=== PATIENT | female | born 1975 | race Hispanic/Latino ===

== ENCOUNTER 2019-10-18 12:29 | Emergency (ER) | payer BC ==
[2019-10-18] MEDS ORDERED: TETANUS/DIPHTHERIA TOXOID [ADULT] 0.5 ML VIAL IM ONE (13:41)
== END 2019-10-18 14:24 | disposition home or self-care (01) ==
LOC: EDH 12:29
DX: S81.032A Puncture wound without foreign body, left knee, initial encounter (principal); X58.XXXA Exposure to other specified factors, initial encounter; Y93.89 Activity, other specified; Y92.89 Other specified places as the place of occurrence of the external cause; Y99.8 Other external cause status
CPT/HCPCS: 73562; 90471; 90714

== ENCOUNTER 2024-08-27 23:00 | Emergency (ER) | payer BC ==
[~2024-08-27] VITALS: Ht 152.4 cm; Wt 82.3 kg
--- NOTE | 2024-08-27 23:05 | NUR ---
LMP 08/18/24
--- NOTE | 2024-08-27 23:10 | ERN ---
ED Note History of Present Illness Stated Complaint: CHEST PAIN Chief Complaint: Chest Pain Time Seen by MD: 23:02 Time Seen by Midlevel: 23:02 Dictation: The patient is a 48-year-old female with a history of hypothyroidism, cholecystectomy who presents to the emergency department with complaints of midsternal chest pain onset 11:30 a.m. after eating. Patient reports pain feels sharp and intermediate lasting a few seconds. Denies any nausea, vomiting, diarrhea, fevers, shortness of breath. Allergies: Coded Allergies: No Known Allergies (Unverified Allergy, Unknown, 08/27/24) Past Medical History Past Medical History: Hypothyroid Surgical History: Cholecystectomy RN Note Reviewed/Agreed w/PFSH: Yes Review of System Dictation Constitutional: Negative for fever,chills, and weight loss Eyes: Negative for injury, pain,redness, and discharge ENT: Negative for injury,pain or swelling Cardiovascular: Negative for palpitations, and edema positive for chest pain Respiratory: Negative for shortness of breath, cough, and wheezing, Abdomen/GI: Negative for abdominal pain, nausea, vomiting, diarrhea, and constipation Back: Negative for injury and pain : Negative for injury, bleeding and discharge MS/Extremity: Negative for injury and deformity Skin: Negative for rash, and discoloration Neuro: Negative for headache, weakness, numbness, tingling, and seizure Psych: Negative for suicide ideation, homicidal ideation, and hallucinations Initial Vital Sign VS Vital Signs Date Time Temp Pulse Resp B/P (MAP) Pulse Ox O2 Delivery O2 Flow Rate FiO2 08/27/24 23:01 98.2 89 20 149/78 98 Room Air 08/27/24 23:13 0 21 Physical Exam Dictation Vital Signs reviewed General Appearance: Alert, oriented x 3, no acute distress, well developed, nourished. Head and Face: non-traumatic. Eyes: PERRL, pink conjunctivas, eyelid no trauma, anterior chamber with arcus senilis. Ears: Pinnas intact and no signs of trauma or erythema ear canals clear and no discharge TM no erythema Nose: No discharge, no bleeding. Oropharynx: Mouth normal, tongue pink. pharynx clear,no erythema, tonsils no exudates, no abscesses noted, mucous membrane moist Neck: Supple, non-tender, no thyromegaly, no masses, no JVD, no bruits Breast:Deferred Chest:No tenderness, no crepitus, no paradoxical movement, no retractions Lungs:Clear, well-ventilated, symmetric, no rales, no wheezing, no rhonchi, no stridor, good breath sounds bilaterally Heart: Regular rate, regular rhythm, no murmur, no gallops Vascular: no peripheral edema, Abdomen: Soft, positive bowel sounds, nondistended, no guarding, nontender, no rebound, no masses no hepatomegaly, no splenomegaly, no Jose's sign, no hernias. Rectal: Deferred Genital: Deferred Neurological: Normal speech, motor function intact, sensory function intact Musculoskeletal: Neck nontender, full range of motion, back nontender, full range of motion, Extremities: nontender, full range of motion Skin: Color pink, dry, no turgor, no rash, no lacerations, no abrasions, no contusions. Lymphatic: Deferred Results (Laboratory/Radiology) Laboratory/Radiology Laboratory Tests Test 08/27/24 23:13 08/27/24 23:20 08/27/24 23:44 08/28/24 00:20 White Blood Count 12.8 K/uL (4.8-10.8) H Red Blood Count 4.90 MIL/uL (4.00-5.50) Hemoglobin 14.4 g/dL (12.0-16.0) Hematocrit 41.5 % (36-48) Mean Corpuscular Volume 84.7 fL (79-99) Mean Corpuscular Hemoglobin 29.4 pg (27.0-33.0) Mean Corpuscular Hemoglobin Concent 34.7 g/dL (32.0-36.0) Red Cell Distribution Width 12.7 % (11.0-15.5) Platelet Count 316 K/uL (130-400) Mean Platelet Volume 9.3 fL (7.5-10.5) Immature Granulocyte % (Auto) 1.6 % (0-1) H Neutrophils (%) (Auto) 59.0 % (40.0-77.0) Lymphocytes (%) (Auto) 27.9 % (21.0-51.0) Monocytes (%) (Auto) 8.6 % (3.0-13.0) Eosinophils (%) (Auto) 2.3 % (0.0-8.0) Basophils (%) (Auto) 0.6 % (0.0-5.0) Neutrophils # (Auto) 7.5 K/uL (1.8-7.7) Lymphocytes # (Auto) 3.6 K/uL (1.0-4.8) Monocytes # (Auto) 1.1 K/uL (0.1-1.0) H Eosinophils # (Auto) 0.30 K/uL (0.00-0.70) Basophils # (Auto) 0.08 K/uL (0.00-0.20) Absolute Immature Granulocyte (auto 0.21 K/uL (0-1) Nucleated Red Blood Cells 0.0 % (0.0-0.19) Sodium Level 141 mmol/L (136-145) Potassium Level 3.8 mmol/L (3.5-5.1) Chloride Level 104 mmol/L (101-111) Carbon Dioxide Level 25 mmol/L (21-32) Blood Urea Nitrogen 7 mg/dL (7-18) Creatinine 0.6 mg/dL (0.5-1.0) Glomerular Filtration Rate Calc 112 mL/min (>90) Random Glucose 136 mg/dL (70-105) H Total Calcium 9.1 mg/dL (8.5-10.1) Total Bilirubin 0.2 mg/dL (0.2-1.0) Direct Bilirubin 0.1 mg/dL (0.0-0.3) Aspartate Amino Transf (AST/SGOT) 12 U/L (10-37) Alanine Aminotransferase (ALT/SGPT) 18 U/L (12-78) Alkaline Phosphatase 55 U/L (50-136) Total Creatine Kinase 49 U/L (21-232) Troponin I High Sensitivity < 4 ng/L (4-50) L < 4 ng/L (4-50) L B-Type Natriuretic Peptide < 5 pg/mL (0-100) Total Protein 7.4 g/dL (6.0-8.3) Albumin 3.5 g/dL (3.5-5.0) Lipase 42 U/L (16-77) Urine Color COLORLESS (YELLOW) Urine Appearance CLEAR (CLEAR) Urine pH 6.0 (5.0-8.0) Urine Specific [place] 1.010 (1.001-1.031) Urine Protein NEGATIVE mg/dL (NEGATIVE) Urine Glucose (UA) NEGATIVE mg/dL (NEGATIVE) Urine Ketones NEGATIVE mg/dL (NEGATIVE) Urine Occult Blood MODERATE (NEGATIVE) H Urine Nitrate NEGATIVE (NEGATIVE) Urine Bilirubin NEGATIVE mg/dL (NEGATIVE) Urine Urobilinogen 0.2 mg/dL (0.2-1.0) Urine Leukocyte Esterase NEGATIVE Markus/uL Urine RBC 2-5 /HPF (0-1) H Urine WBC 0-1 /HPF (0-1) Urine Squamous Epithelial Cells FEW /HPF (0-2) Urine Bacteria RARE /HPF (None Seen) Urine HCG, Qualitative NEGATIVE (NEGATIVE) Urine Opiates Screen NEGATIVE (NEGATIVE) Urine Barbiturates Screen NEGATIVE (NEGATIVE) Urine Phencyclidine Screen NEGATIVE (NEGATIVE) Urine Amphetamines Screen NEGATIVE (NEGATIVE) Urine Benzodiazepines Screen NEGATIVE (NEGATIVE) Urine Cocaine Screen NEGATIVE (NEGATIVE) Urine Marijuana (THC) Screen NEGATIVE (NEGATIVE) Troponin I < 0.05 ng/mL (0.00-0.05) Labs Reviewed?: Yes EKG: (+) rhythm (Sinus rhythm) EKG Comment: EKG 08/27/2024 2304 ventricular rate 81, regular rate and rhythm, normal sinus rhythm, no STEMI ED Course ED Course Orders Procedure Category Date Status Time Vital Signs Per CPOE 08/27/24 Transmitted Routine 23:04 B-Type Natriuretic LAB 08/27/24 Complete Peptide 23:04 Chest 1vw RAD 08/27/24 Taken 23:04 12 Lead Ekg Tracing- EKG 08/27/24 Logged Technical 23:04 Oxygen By Nc/Pulse Ox CPOE 08/27/24 Transmitted 23:04 Maintain Iv CPOE 08/27/24 Transmitted 23:04 Iv Insertion CPOE 08/27/24 Transmitted 23:04 Cardiac Monitoring CPOE 08/27/24 Transmitted 23:04 Pulse Oximetry With CPOE 08/27/24 Transmitted Vs And Prn 23:04 Cbc With Differential LAB 08/27/24 Complete 23:04 Activity: Br W/Brp CPOE 08/27/24 Transmitted With Assist 23:04 Troponin I High LAB 08/27/24 Complete Sensitivity 23:04 Urinalysis Profile LAB 08/27/24 Complete 23:04 Troponin Poc Order LAB 08/27/24 Complete Only 23:04 Bedside Troponin-I LAB.ER 08/27/24 In Process (Poc) 23:04 ,Urine Test LAB 08/27/24 Complete 23:04 Lipase LAB 08/27/24 Complete 23:06 Hepatic Function Panel LAB 08/27/24 Complete 23:06 Pantoprazole 40mg Inj PHA 08/27/24 Complete (Protonix 40mg Inj 23:30 Nitroglycerin 1gm PHA 08/27/24 Complete Oint (Nitroglycerin 1g 23:30 Aspirin 325mg Tab PHA 08/27/24 Complete (Aspirin 325mg Tab) 23:30 Basic Metabolic Panel LAB 08/27/24 Complete 23:13 Creatine Kinase, Total LAB 08/27/24 Complete 23:13 Drug Screen Urine LAB 08/27/24 Complete 23:30 Troponin I High LAB 08/28/24 Complete Sensitivity 00:14 Current Medications Medications (Trade) Dose Ordered Sig/Kaci Route PRN Reason Start Time Stop Time Status Last Admin Dose Admin Aspirin (Aspirin 325mg Tab) 325 mg ONCE ONCE PO 08/27/24 23:30 08/27/24 23:31 DC 08/27/24 23:21 Nitroglycerin (Nitroglycerin 1gm Oint) 1 inch ONCE ONCE TD 08/27/24 23:30 08/27/24 23:31 DC 08/27/24 23:20 Pantoprazole Sodium (PROTonix 40MG INJ) 40 mg ONCE ONCE IVP 08/27/24 23:30 08/27/24 23:31 DC 08/27/24 23:20 Vital Signs Date Time Temp Pulse Resp B/P (MAP) Pulse Ox O2 Delivery O2 Flow Rate FiO2 08/28/24 00:09 86 16 113/63 97 Room Air* 0 21 08/27/24 23:13 98.2 83 16 141/83 99 Room Air* 0 21 08/27/24 23:01 98.2 89 20 149/78 98 Room Air HEART Score Response (Comments) Value History: Low suspicion (0) 0 EKG: Normal 0 Age: 45-65yrs (+1) 1 Risk Factors: No known risk factors (0) 0 Initial Troponin: Normal limit (0) 0 Total 1 Medical Decision Making MDM The patient is a 48-year-old female with a history of hypothyroidism, cholecystectomy who presents to the emergency department with complaints of midsternal chest pain onset 11:30 a.m. after eating. Patient reports pain feels sharp and intermediate lasting a few seconds. Denies any nausea, vomiting, diarrhea, fevers, shortness of breath. CBC showed mild leukocytosis, no anemia, chemistry showed no electrolyte imbalance, negative troponin x2, normal BNP, normal lipase. Urinalysis unremarkable. Chest x-ray with no acute pathology. Patient no longer having any chest pain will be discharged to follow up with PCP. Differential diagnosis: ACS, electrolyte imbalance, gastritis, pancreatitis, pneumonia Need for hospitalization: Patient does not meet criteria for hospitalization. There are no social concerns with this patient. DX & DISP Disposition: Discharge Departure Impression: Primary Impression: Chest pain Additional Impressions: Leukocytosis, Gastritis Condition: Stable Scripts Pantoprazole Sodium (Pantoprazole Sodium) 20 Mg Tablet.dr 1 TAB PO DAILY for 30 Days, #30 TAB 0 Refills Prov: KIRSTY WILKS 08/28/24 Additional Instructions: Please follow up with your primary care provider in 1-2 days. If symptoms worsen please return to ER. FOLLOW-UP WITH PRIMARY CARE PROVIDER IN 1 TO 2 DAYS. TAKE MEDICATIONS DIRECTED HERE IN THE EMERGENCY ROOM. OKAY TO CONTINUE HOME MEDICATIONS UNLESS OTHERWISE DISCUSSED DURING YOUR VISIT IN THE EMERGENCY ROOM TODAY. RETURN TO YOUR NEAREST EMERGENCY ROOM IF SYMPTOMS WORSEN OR IF THERE IS NO IMPROVEMENT. CALL 911 IF YOU NEED IMMEDIATE ASSISTANCE. TAKE TYLENOL OR MOTRIN [id number] NEEDED AND IF NO CONTRAINDICATIONS ARE PRESENT. INCREASE ORAL HYDRATION. A WOUND CULTURE OR URINE CULTURE WAS ORDERED HERE IN THE EMERGENCY ROOM DEPARTMENT PLEASE FOLLOW-UP WITH PRIMARY CARE PROVIDER AND ADVISE THEM TO GET REPEAT PORTS FROM OUR FACILITY. IF YOU HAD ANY NIVIA WRAP/SPLINTS THAT WERE APPLIED HERE, PLEASE DO NOT REMOVE THEM UNTIL YOU SEE YOUR PRIMARY CARE OR SPECIALTY. Referrals: TONI HENDERSON MD (PCP) Time of Disposition: 01:07 I have reviewed the case, and I agree with, Diagnosis and Plan KIRSTY WILKS Aug 27, 2024 23:10
[2024-08-27 23:13] VITALS: TEMP 98.3
[2024-08-27] MEDS: NITROGLYCERIN 1GM OINT 1 INCH/1GM TD ONE (23:20)
[2024-08-27] MEDS: PANTOPrazole 40 MG/VIAL IVP ONE (23:20)
[2024-08-27] MEDS: ASPIRIN 325MG TAB PO ONE (23:21)
[2024-08-27 23:27] LABS: BASOPHILS # (AUTO) 0.08 K/uL (0.00-0.20); BASOPHILS % (AUTO) 0.6 % (0.0-5.0); EOSINOPHILS % (AUTO) 2.3 % (0.0-8.0); HEMATOCRIT 41.5 % (36-48); IMMATURE GRANULOCYTE ABSOLUTE 0.21 K/uL (0-1); LYMPHOCYTES # (AUTO) 3.6 K/uL (1.0-4.8); LYMPHOCYTES % (AUTO) 27.9 % (21.0-51.0); MEAN CORPUSCULAR HEMOGLOBIN 29.4 pg (27.0-33.0); MEAN CORPUSCULAR HGB CONC 34.7 g/dL (32.0-36.0); MEAN CORPUSCULAR VOLUME 84.7 fL (79-99); MONOCYTES # (AUTO) 1.1 K/uL (0.1-1.0); MONOCYTES % (AUTO) 8.6 % (3.0-13.0); NEUTROPHILS # (AUTO) 7.5 K/uL (1.8-7.7); PLATELET COUNT (AUTO) 316 K/uL (130-400); RED CELL DISTRIBUTION WIDTH 12.7 % (11.0-15.5); WHITE BLOOD COUNT (AUTO) 12.8 K/uL (4.8-10.8)
[2024-08-27 23:36] LABS: APPEARANCE,URINE CLEAR (CLEAR); BILIRUBIN,URINE NEGATIVE (NEGATIVE); COLOR,URINE COLORLESS (YELLOW); GLUCOSE, URINE (UA) NEGATIVE (NEGATIVE); KETONES,URINE NEGATIVE (NEGATIVE); LEUKOCYTE ESTERASE ,URINE NEGATIVE Leu/uL (NEGATIVE); NITRATE,URINE NEGATIVE (NEGATIVE); OCCULT BLOOD,URINE MODERATE (NEGATIVE); PROTEIN,URINE NEGATIVE (NEGATIVE); UROBILINOGEN,URINE 0.2 mg/dL (0.2-1.0)
[2024-08-27 23:38] LABS: ADD UA MICROSCOPIC YES; HCG,QUALITATIVE URINE NEGATIVE (NEGATIVE)
[2024-08-27 23:41] LABS: B-TYPE NATRIURETIC PEPTIDE < 5 pg/mL (0-100)
[2024-08-27 23:52] LABS: BACTERIA,URINE RARE /HPF (None Seen); MUCUS,URINE RARE LPF (None Seen); SQUAMOUS EPITHELIAL CELL,UR FEW /HPF (0-2); WBC,URINE 0-1 /HPF (0-1)
[2024-08-28 00:01] LABS: CREATININE 0.6 mg/dL (0.5-1.0); POTASSIUM 3.8 mmol/L (3.5-5.1)
[2024-08-28 00:11] LABS: ALBUMIN 3.5 g/dL (3.5-5.0); BILIRUBIN,DIRECT 0.1 mg/dL (0.0-0.3); BILIRUBIN,TOTAL 0.2 mg/dL (0.2-1.0); TOTAL PROTEIN, SERUM 7.4 g/dL (6.0-8.3)
[2024-08-28 00:21] LABS: AMPHET/METH SCREEN,URINE NEGATIVE (NEGATIVE); BARBITURATE SCREEN, URINE NEGATIVE (NEGATIVE); BENZODIAZEPINES SCREEN,URINE NEGATIVE (NEGATIVE); CANNABINOID SCREEN,URINE NEGATIVE (NEGATIVE); COCAINE SCREEN,URINE NEGATIVE (NEGATIVE); OPIATE SCREEN,URINE NEGATIVE (NEGATIVE); PHENCYCLIDINE SCREEN,URINE NEGATIVE (NEGATIVE)
[2024-08-28 01:04] VITALS: BP 113/63; PULSE 89; RESP 16; O2SAT 99
[2024-08-28] MEDS ORDERED: PANT20TA18 PO (01:07)
--- NOTE | 2024-08-28 05:11 | EKG ---
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
--- NOTE | 2024-08-28 08:31 | HMCIMG ---
CHEST 1VW HISTORY: Chest pain COMPARISON: None FINDINGS: A frontal projection of the chest was obtained. No acute pulmonary infiltrates is seen. The heart is normal in size. Prominent interstitial markings are seen. No evidence of aortic calcification is seen. IMPRESSION: 1. No acute pulmonary infiltrate is seen.
== END 2024-08-28 01:21 | disposition home or self-care (01) ==
LOC: EDH 23:00
DX: R07.89 Other chest pain (principal); K29.70 Gastritis, unspecified, without bleeding; D72.829 Elevated white blood cell count, unspecified; E03.9 Hypothyroidism, unspecified; Z79.899 Other long term (current) drug therapy; Z90.49 Acquired absence of other specified parts of digestive tract
CPT/HCPCS: 99284; 96374; 71045; 82550; 80076; 84484 ×3; 80048; 83880; 80305; 83690; 85025; 81025; 36415; 93005; 81001; J2470